=== PATIENT | male | born 1990 | race Two or more races ===

== ENCOUNTER 2017-04-26 18:02 | Emergency (ER) | payer MEDICAID ==
[~2017-04-26] VITALS: Ht 170.2 cm; Wt 70.3 kg
[2017-04-26 18:10] VITALS: BP 135/76
[2017-04-26] MEDS ORDERED: KETOROLAC TROMETHAMINE INJ 30 MG/ML VIAL ONE (18:25)
[2017-04-26] MEDS ORDERED: DEXAMETHASONE SOD PHOSPHATE 10 MG/ML VIAL ONE (18:25)
[2017-04-26] MEDS ORDERED: PENICILLIN G BENZATHINE 2.4 MMU/4 ML ML IM ONE ×2 (18:25→18:30)
[2017-04-26] MEDS ORDERED: DEXAMETHASONE SOD PHOSPHATE 4 MG/ML VIAL IM ONE (18:30)
[2017-04-26] MEDS ORDERED: KETOROLAC TROMETHAMINE INJ 60 MG/2 ML VIAL IM ONE (18:30)
== END 2017-04-26 18:55 | disposition home or self-care (01) ==
LOC: ER 18:07
DX: J02.9 Acute pharyngitis, unspecified (principal)
CPT/HCPCS: 96372 ×3; 99284; A4606; J0558 ×2; J1100 ×2; J1885 ×2; Z7610